=== PATIENT | male | born 1940 | race Caucasian/White ===

== ENCOUNTER → 2017-06-17 | Outpatient (CLI) | payer OTHER, MEDICARE | LOC: BMCIMAGING 11:27 | PROVIDERS: ATTEND Internal Medicine Cardiovascular Disease | DX: R42 Dizziness and giddiness (principal); Z95.0 Presence of cardiac pacemaker ==

== ENCOUNTER 2017-06-24 08:07 | Inpatient (IN) | payer OTHER, MEDICARE ==
--- NOTE | 2017-06-24 08:27 | CPEKG ---
Heart Rate: 71 RR Interval: 845 P-R Interval: 204 QRSD Interval: 78 QT Interval: 364 QTC Interval: 396 QRS Jesse: 87 T Wave Jesse: 99 EKG Severity - ABNORMAL ECG - EKG Impression: ATRIAL-PACED RHYTHM EKG Impression: BORDERLINE RIGHT AXIS DEVIATION EKG Impression: NONSPECIFIC T ABNORMALITIES, LATERAL LEADS Electronically Signed By: Khoa Lowery 24-Jun-2017 08:28:12
--- NOTE | 2017-06-24 08:28 | EDPHY ---
H & P Time Seen by Provider: 06/24/17 08:26 HPI/ROS: CHIEF COMPLAINT: Chest pain HISTORY OF PRESENT ILLNESS: On June 22 the patient had revision of pacemaker lead by Tom Kerr. He felt well yesterday and then this morning at 4:00 a.m. woke up with chest pain across the upper chest radiating up to his throat down to his abdomen and lasted about 30 minutes and he went back to bed. He woke up at 7:00 a.m. with recurrent symptoms. Upper chest, radiates both up and down, worse with deep breathing. Associated with a little bit of a raspy throat but no cough. REVIEW OF SYSTEMS: Eye: no change in vision ENT: no sore throat Cardiac: No syncope or fainting. Pulmonary: No cough. Mildly short of breath because to take a deep breath increases his pain. Abdomen: no vomiting, diarrhea, abdominal pain Musculoskeletal: No leg swelling or leg pain. Skin: Bruising around the pacemaker insertion site left subclavian but otherwise negative. Neuro: no headache Constitutional: no fever : no urinary symptoms A comprehensive 10 point review of systems is otherwise negative aside from elements mentioned in the history of present illness. PAST MEDICAL HISTORY: Pacemaker, gout, hypertension, cervical fusion, glaucoma. Social history: , former smoker, spouse is recently had a chest cold. No recent travel or immobilization. General Appearance: Alert and conversant, cooperative. Eyes: No scleral icterus. ENT, Mouth: Normal mucous membranes. Respiratory: Normal respiratory effort, breath sounds equal, lungs are clear to auscultation. Slightly splinting. Cardiovascular: Regular rate and rhythm. Gastrointestinal: Abdomen is soft and non tender. Neurological: Alert and oriented x3. Normally conversant. Face symmetric, normal movement and sensation in all extremities. Skin: Some bruising over the left subclavian pacemaker site but otherwise dressing peers intact. Musculoskeletal: No peripheral edema and no joint swelling. No calf tenderness. Psychiatric: Not agitated. Emergency Department course/MDM: Declined pain medication. Chest x-ray, EKG, troponin and D-dimer. 910: Results discussed, dental lab technician paged, D-dimer elevated, CTA discussed and consented. 942: Discussed with tom Peraza interrogate and get echo. 1024: Small effusion on echo 1033: Small hemopericardium on CT, no PE, [facility] 1101: Per Karmen, admit cardiology 1135: Systolic blood pressure 80, normal saline 500 ml IV normal mental status. 1205: Heart rate 30, blood pressure 70/50. 2nd L started and 1 L IV normal saline. Patient is diaphoretic but alert and normal mentation and 0.5 mg IV atropine. His dental lab technician is contacted. 1210: Blood pressure 83/64 and heart rate 100. 1214: Dr. Peraza his dental lab technician is at bedside. EKG appears to be pacing but not capturing. Plan to go directly to cardiac catheterization lab for pericardiocentesis and definitive treatment. Smoking Status: Former smoker Constitutional: Initial Vital Signs Temperature (C) 36.7 C 06/24/17 08:23 Heart Rate 67 06/24/17 08:23 Respiratory Rate 16 06/24/17 08:23 Blood Pressure 140/90 H 06/24/17 08:23 O2 Sat (%) 95 06/24/17 08:23 O2 Delivery Mode Room Air Allergies/Adverse Reactions: No Known Allergies Allergy (Unverified 06/11/15 07:06) Home Medications: Medication Instructions Recorded Allopurinol [Allopurinol 300 MG 300 mg PO DAILY 07/30/15 (RX)] Aspirin [Aspirin 81mg (*)] 81 mg PO DAILY 07/30/15 Bimatoprost 0.01% [Lumigan 0.01% 1 drops EACHEYE HS 07/30/15 (*)] Brimonidine/Timolol [Combigan (*)] 1 drop OP BID 07/30/15 Glucosamine Sulfate [Glucosamine 1,500 mg PO DAILY 06/22/17 Sulfate 500 MG (*)] Herbals/Supplements -Info Only 1 ea PO DAILY 06/22/17 Multivitamin with Minerals 1 each PO DAILY 06/22/17 [Multiple Vitamin] Medical Decision Making - Diagnostics EKG Interpretation: 12-lead EKG interpreted by me; official reading is in trace master. My interpretation is atrial paced rhythm at 71. Imaging Results: Imaging Impressions Chest X-Ray 06/24/17 08:27 Impression: Negative for pneumothorax following cardiac pacer manipulation. Chest/Thorax CTA 06/24/17 09:16 Impression: 1. Mild to moderate hemopericardium with one of the atrial leads appearing to overlie the pericardium, although assessment is limited by lack of cardiac gating. 2. Additional findings as above. Findings discussed with Khoa Lowery on June 24, 2017 at 10:33 a.m. Differential Diagnosis: Differential diagnosis considered for chest pain including but not limited to myocardial ischemia, aortic dissection, pericarditis, pulmonary embolus, chest wall pain, pleural inflammation and pulmonary infectious causes. Critical Care Time: Critical care time spent by me, Dr. Lowery, exclusively with the care of this patient was 45 minutes, exclusive of PA or CLOTH DYEING RANGE TENDER time and exclusive of separate procedures. The organ system at risk was cardiovascular and I ordered IV atropine, IV fluid resuscitation, emergent cardiology consultation to stabilize the patient and prevent worsening of the patient's condition. - Data Points Laboratory Results: Laboratory Results 06/24/17 08:06/24/17 08:06/24/17 06/24/17 06/24/17 08: 08: 08:33 WBC 9.82 10^3/uL H 10^3/uL (3.80-9.50) RBC 4.89 10^6/uL 10^6/uL (4.40-6.38) Hgb 15.5 g/dL g/dL (13.7-17.5) Hct 46.5 % % (40.0-51.0) MCV 95.1 fL fL (81.5-99.8) MCH 31.7 pg pg (27.9-34.1) MCHC 33.3 g/dL g/dL (32.4-36.7) RDW 13.4 % % (11.5-15.2) Plt Count 126 10^3/uL L 10^3/uL (150-400) MPV 12.0 fL H fL (8.7-11.7) Neut % (Auto) 81.5 % H % (39.3-74.2) Lymph % (Auto) 10.0 % L % (15.0-45.0) Wood % (Auto) 7.7 % % (4.5-13.0) Eos % (Auto) 0.2 % L % (0.6-7.6) Baso % (Auto) 0.3 % % (0.3-1.7) Nucleat RBC Rel Count 0.0 % % (0.0-0.2) Absolute Neuts (auto) 8.00 10^3/uL H 10^3/uL (1.70-6.50) Absolute Lymphs (auto) 0.98 10^3/uL L 10^3/uL (1.00-3.00) Absolute Monos (auto) 0.76 10^3/uL 10^3/uL (0.30-0.80) Absolute Eos (auto) 0.02 10^3/uL L 10^3/uL (0.03-0.40) Absolute Basos (auto) 0.03 10^3/uL 10^3/uL (0.02-0.10) Absolute Nucleated RBC 0.00 10^3/uL 10^3/uL (0-0.01) Immature Gran % 0.3 % % (0.0-1.1) Immature Gran # 0.03 10^3/uL 10^3/uL (0.00-0.10) D-Dimer 0.74 ug/mLFEU H ug/mLFEU (0.00-0.50) Sodium 139 mEq/L mEq/L (134-144) Potassium 4.5 mEq/L mEq/L (3.5-5.2) Chloride 102 mEq/L mEq/L (97-110) Carbon Dioxide 24 mEq/l mEq/l (22-31) Anion Gap 13 mEq/L mEq/L (8-16) BUN 19 mg/dL mg/dL (7-23) Creatinine 1.0 mg/dL mg/dL (0.7-1.3) Estimated GFR > 60 Glucose 179 mg/dL H mg/dL (70-100) Calcium 9.0 mg/dL mg/dL (8.5-10.4) Troponin I < 0.012 ng/mL ng/mL (0-0.034) Medications Given: Discontinued Medications Sodium Chloride (Ns) 500 mls @ 1,500 mls/hr IV ONCE ONE Stop: 06/24/17 11:57 Last Admin: 06/24/17 11:56 Dose: 500 mls Sodium Chloride (Ns) 1,000 mls @ 0 mls/hr IV ONCE ONE PRN Reason: Wide Open Stop: 06/24/17 11:56 Last Admin: 06/24/17 12:55 Dose: 1,000 mls Sodium Chloride (Ns) 1,000 mls @ 0 mls/hr IV ONCE ONE PRN Reason: Wide Open Stop: 06/24/17 12:48 Last Admin: 06/24/17 12:00 Dose: 1,000 mls Departure - Departure Disposition: To OP Cath/Surgery Clinical Impression: Pericardial effusion, PACEMAKER PROBLEM Chest pain Qualifiers: Chest pain type: unspecified Qualified Code(s): R07.9 - Chest pain, unspecified Condition: Serious
[2017-06-24 08:42] LABS: % IMMATURE GRANULYOCYTES 0.3 % (0.0-1.1); ABSOLUTE IMMATURE GRANULOCYTES 0.03 10^3/uL (0.00-0.10); ADD DIFF? NO; ADD MORPH? NO; ADD SCAN? NO; ATYPICAL LYMPHOCYTE FLAG 0 (0-99); FRAGMENT RBC FLAG 0 (0-99); HEMATOCRIT 46.5 % (40.0-51.0); HEMOGLOBIN 15.5 g/dL (13.7-17.5); LEFT SHIFT FLG 0 (0-99); LIPEMIA HEMOLYSIS FLAG 80 (0-99); MEAN CELL HEMOGLOBIN 31.7 pg (27.9-34.1); MEAN CELL HEMOGLOBIN CONCENTR. 33.3 g/dL (32.4-36.7); MEAN CELL VOLUME 95.1 fL (81.5-99.8); PLATELET CLUMPS FLAG 0 (0-99); PLATELET COUNT 126 10^3/uL (150-400); RED BLOOD CELL COUNT 4.89 10^6/uL (4.40-6.38); RED CELL DISTRIBUTION WIDTH 13.4 % (11.5-15.2)
[2017-06-24 08:54] LABS: ANION GAP 13 mEq/L (8-16); CARBON DIOXIDE 24 mEq/l (22-31); CHLORIDE 102 mEq/L (97-110); GLOMERULAR FILTRATION RATE > 60; GLUCOSE 179 mg/dL (70-100); POTASSIUM 4.5 mEq/L (3.5-5.2); SODIUM 139 mEq/L (134-144)
[2017-06-24 09:05] LABS: TROPONIN I < 0.012 ng/mL (0-0.034)
[2017-06-24] MEDS ORDERED: IOPAMIDOL (ISOVUE 370) 100 ML BTL IV ONE (09:48)
[2017-06-24] MEDS ORDERED: NS 500 ML IV ONE (11:38)
[2017-06-24] MEDS ORDERED: NS 1,000 ML IV ONE ×2 (11:55→12:47)
[2017-06-24] MEDS ORDERED: ATROPINE SULFATE 1 MG/10 ML SYR IVP ONE (12:00)
[2017-06-24] MEDS ORDERED: ATROPINE SULFATE 1 MG/10 ML SYR ONE ×2 (12:08→12:37)
--- NOTE | 2017-06-24 12:09 | CPEKG ---
Heart Rate: 74 RR Interval: 811 P-R Interval: 208 QRSD Interval: 78 QT Interval: 408 QTC Interval: 453 P [place]: 256 QRS [place]: 84 T Wave [place]: 84 EKG Severity - ABNORMAL ECG - EKG Impression: FAILURE TO SENSE AND/OR CAPTURE (?MAGNET) Electronically Signed By: Khoa Lowery 24-Jun-2017 13:28:55
[2017-06-24] MEDS ORDERED: fentaNYL 100 MCG/2 ML INJ ONE ×2 (12:23→13:25)
[2017-06-24] MEDS ORDERED: MIDAZOLAM 2 MG/2 ML VIAL ONE ×2 (12:23→13:25)
[2017-06-24] MEDS ORDERED: LIDOCAINE 1% 300 MG/30 ML SDV ONE ×2 (12:23→13:15)
[2017-06-24] MEDS ORDERED: DOPamine/DEXTROSE/250 ML BAG IV ONE (12:35)
[2017-06-24] MEDS ORDERED: EPINEPHrine 1 MG/10 ML SYR IVP ONE (12:37)
[2017-06-24] MEDS ORDERED: LIDO/EPI 1% **for epidural** 30 ML SDV ONE (13:14)
[2017-06-24] MEDS ORDERED: CEFAZOLIN 1 GM/DEXTROSE/50 ML BAG IV ONE (13:14)
[2017-06-24] MEDS ORDERED: BUPIVACAINE 0.5% 30 ML SDV ONE (13:15)
[2017-06-24] MEDS ORDERED: CITRATE DEXTROSE SOLN 500 ML BAG ONE (13:22)
[2017-06-24] MEDS ORDERED: BACITRACIN IRRIGATION/NS 50,000 UNITS/1,000 ML BTL IRR ONE (13:30)
--- NOTE | 2017-06-24 15:38 | CPEKG ---
Heart Rate: 60 RR Interval: 1000 P-R Interval: 228 QRSD Interval: 86 QT Interval: 416 QTC Interval: 416 QRS [place]: 72 T Wave [place]: 85 EKG Severity - ABNORMAL ECG - EKG Impression: ATRIAL-PACED RHYTHM EKG Impression: NONSPECIFIC T ABNORMALITIES, LATERAL LEADS Electronically Signed By: Arsenio Oconnor 25-Jun-2017 07:02:28
[2017-06-24] MEDS ORDERED: IBUPROFEN 200 MG TAB PO ONE (16:15)
--- NOTE | 2017-06-24 16:39 | GCON ---
[f rep st] CONSULTATION FIRE EXTINGUISHER REPAIRER INSPECTOR CONSULTATION REASON FOR ADMISSION: Pericardial tamponade. HISTORY OF PRESENTING ILLNESS: The patient is a 77-year-old white male with a past medical history of a pacemaker as well as gout. He was seen on 06/23/2017, for a new atrial lead. He returned, com plaining of chest pain and shortness of breath. He was found to have pericardial tamponade. He was taken to the cardiac catheterization lab, and a drain was placed. Approximately 250 cc was removed . He was subsequently admitted to the intensive care unit. In discussion today, he states that he feels somewhat better. He still has some mild chest pain but denies any shortness of breath. There is no cough or productive sputum. No fever or night sweats. PAST MEDICAL HISTORY: Significant for gout, and had a pacemaker placement. PAST SURGERIES: Neck surgery. ALLERGIES: None to medications. SOCIAL HISTORY: No history of tobacco use. Infrequent alcohol use. 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 He is . Has excellent family support. PHYSICAL EXAM: VITAL SIGNS: Blood pressure is 62/52, pulse is 72, respirations 18, temperature 37. 5, oxygen saturation 96% on 2 L. GENERAL: He is a mildly overweight, very pleasant, 77-year-old, w jona male who is resting comfortably, in no acute distress. HEENT: Eyes: [place], EOMI. Throat show s no erythema or tonsillar hypertrophy. NECK: Supple. No cervical adenopathy. HEART: Regular ra te and rhythm with a 2/6 systolic murmur at left sternal border without radiation. LUNGS: Diminish ed breath sounds but no wheeze. ABDOMEN: Soft, nontender. Bowel sounds are present. EXTREMITIES: No clubbing, cyanosis, or edema. LABORATORIES: White count is 9.8, hemoglobin 15, hematocrit 46, platelet count is 126. Sodium 139, potassium 4.5, chloride 102, CO2 24, BUN 19, creatinine 1, glucose is 179. IMPRESSION: 1. Status post pacemaker lead placement. 2. Iatrogenic microperforation with pericardial effusion and tamponade physiology. 3. History of gout. 4. Respiratory, currently stable on room air. 5. Chest pain. RECOMMENDATION: 1. Adequate pain control. 2. DVT and PE prophylaxis. 3. Stress ulcer prophylaxis. 4. Close cardiovascular monitoring. /[id number]/MODL
--- NOTE | 2017-06-24 17:09 | CPIP ---
[f rep st] INVASIVE CARDIAC PROCEDURE DATE OF PROCEDURE: 06/24/2017 PROCEDURE: Pericardiocentesis. INDICATION: Tamponade. Consent signed and in front of chart. SPECIFICS: 1. 1% lidocaine was used to anesthetize the subxiphoid region. 2. Percutaneous needle was advanced into the pericardial space under echocardiographic guidance and bloody fluid withdrawn. Agitated saline was used for contrast to verify entry into the pericardial space. A 0.035 wire was then advanced in the pericardial space followed by a dilator and a pericar dial drain, 200 mL of bloody fluid was withdrawn with return of normal hemodynamics. COMPLICATIONS: None. CONCLUSIONS: Status post successful pericardiocentesis. /[id number]/MODL
--- NOTE | 2017-06-24 17:31 | ECHO ---
[id number] + + [address] : : [place] [address] : : [phone] + + Adult Echocardiographic Report + ----+ :Name: LAURA MARTELL WStudy Date: 06/24/2017 12:35 PM : : Hospital Admission Number: [id number] Location : ER: :: 1940 Gender: Male : :Age: 77 yrs Race: WH : :History: Post Pacemaker, Chest Pain SOB, Pacemaker stop : :capturing. : + ----+ Pericardium/Pleural There is a moderate to severe pericardial effusion. The diastolic compression of the right atrium and right ventricle are suggestive of cardiac tamponade. Conclusion This is a stat limited to evaluate pericardial effusion. 1. There is a moderate to large pericardial effusion. 2. There is diastolic compression of the right atrium and right ventricle are suggestive of cardiac tamponade. Final Reading Physician: Laura Harris MD electronically signed on 06/24/2017 05:30 PM Ordering Physician: CASI SNIDER
--- NOTE | 2017-06-24 17:38 | ECHO ---
[id number] + + [address] : : [place] [address] : : [phone] + + Adult Echocardiographic Report + ------+ :Name: LAURA MARTELL WStudy Date: 06/24/2017 10:28 AM : : Hospital Admission Number: [id number] Location : 11: :: 1940 Gender: Male Height: 73 in : :Age: 77 yrs Race: WH Weight: 185 lb : :Reason For Study: Chest Pain : : BSA: 2.1 meters2 : :History: Pacer : + ------+ MMode/2D Measurements \T\ Calculations IVSd: 1.3 cm LVIDd: 4.2 cm FS: 36.3 % Ao root diam: 3.3 cm LVPWd: 0.93 cm LVIDs: 2.7 cm EDV(Teich): 79.0 ml ESV(Teich): 26.5 ml EF(Teich): 66.4 % Normal Measurement Values: + + :LVIDd (3.5-5.7cm) IVSd (0.6-1.1cm) LVPWd (0.6-1.1cm) Aortic Root (2.0-3.7cm)Left Atrium (1.5-4.0cm): :LV Vol(d) (76-115ml) LV Vol(s) (29-48ml) Ejec Fraction (50-65%)PV Kevon (0.6- 1.2m/s) TV Kevon (0.4-1.0m/s) : :MV E Kevon (0.8-1.0m/s)MV A Kevon (0.3-1.0m/s)LVOT Kevon (0.7-1.2m/s) Asc Ao Kevon ( 0.9-1.8m/s) : + + Doppler Measurements \T\ Calculations MV E max kevon: 43.9 cm/sec Ao V2 max: 103.8 cm/sec TR max kevon: 204.0 cm/sec MV A max kevon: 50.8 cm/sec Ao max P.3 mmHg TR max P.6 mmHg MV E/A: 0.86 RAP systole: 5.0 mmHg RVSP(TR): 21.6 mmHg Left Ventricle The left ventricle is normal in size. There is mild concentric left ventricular hypertrophy. Ejection Fraction = 60%. No regional wall motion abnormalities noted. Right Ventricle The right ventricle is normal in size and function. There is a pacemaker lead in the right ventricle. Atria The left atrial size is normal. Right atrial size is normal. Mitral Valve The mitral valve is normal in structure and function. There is no evidence of mitral valve prolapse. There is no mitral valve stenosis. Tricuspid Valve Normal tricuspid valve. There is trace tricuspid regurgitation. Right ventricular systolic pressure is normal. Aortic Valve The aortic valve is not well visualized. There is no aortic stenosis. There is no aortic insufficiency. Pulmonic Valve The pulmonic valve is not well visualized. There is no pulmonic valvular regurgitation. Great Vessels The aortic root is normal size. Pericardium/Pleural There is a small pericardial effusion with out tamponade physiology. Conclusion A complete two-dimensional transthoracic echocardiogram was performed (2D, M-mode, Doppler and color flow Doppler). Pacer being checked during echo (explanation for short bradycardia and tachycardia). 1. The left ventricle is normal in size. There is mild concentric left ventricular hypertrophy. The Ejection Fraction = 60%. 2. The mitral valve is normal in structure and function. 3. The aortic valve is not well visualized. There is no aortic stenosis. There is no aortic insufficiency. 4. Right ventricular systolic pressure is normal. 5. There is a small pericardial effusion with out tamponade physiology. Final Reading Physician: Laura Harris MD electronically signed on 06/24/2017 05:37 PM Ordering Physician: CASI SNIDER
--- NOTE | 2017-06-24 17:47 | ECHO ---
[id number] + + [address] : : [place] [address] : : [phone] + + Adult Echocardiographic Report + + :Name: LAURA MARTELL WStudy Date: 06/24/2017 12:46 PM : : Hospital Admission Number: [id number] Location : cardiac catheterization technician: :: 1940 Gender: Male : :Age: 77 yrs Race: WH : :Reason For Study: Eval Pericardial Effusion : :History: Pericardiocentisis : + + Pericardium/Pleural There is a moderate to large pericardial effusion, 340ml of pericardial fluid was removed during the procedure. Conclusion This is a limited echo to evaluate pericardial fluid during pericardiocentisis. 1. There is a moderate to large pericardial effusion with tamponade physiology. 2. IV contrast was given during study demonstrating no R to L shunt. (IV contrast was given when asked for pericaridal contrast) 3. Pericardial drain placed and 340ml of bloody pericardial fluid was removed. 4. Trace pericardial effusion was present after the pericaridal fluid was removed. 5. A trace to small pericardial effusion was present after lead revision. Final Reading Physician: Laura Harris MD electronically signed on 06/24/2017 05:46 PM Ordering Physician: Jovan Peraza Performed By: Mahamed Wylie, ROCIOCS
[2017-06-24] MEDS: BRIMONIDINE/TIMOLOL 5 ML OPHT.BTL OP SCH (19:35)
[2017-06-24] MEDS: BIMATOPROST 0.01% 2.5 ML OPHT.BTL EACHEYE SCH (19:36)
--- NOTE | 2017-06-24 19:38 | EPPROC ---
Electrophysiology Procedure Note: PROCEDURE PERFORMED: 1. Atrial lead revision INDICATION: Pericardial effusion post-atrial lead revision which led to tamponade. The pt had pericardiocentesis with confirmed bloody pericardial effusion and hence though the atrial lead did not appear to be dislodged, it was certain that the effusion was secondary to microperforation and hence it was decided to reposition to a different location after pericardial drain was placed. PROCEDURE NOTE: Patient presented to the cardiac catheterization laboratory in a fasting, postabsorptive state. Moderate sedation was administered and pericardial tap was performed. The __ infraclavicular area was prepped and draped in the usual sterile fashion. Lidocaine plus bupivacaine was used for local anesthesia. Using a combination of blunt and sharp dissection and electrocautery, the dissection was carried down to the prepectoral fascia and the existing pacemaker pocket was opened. The pacemaker generator was disconnected from the leads and the atrial lead was disconnected. Suture sleeve cur and stylet placed. lead was retracted and removed. After several attempts it was repositioned to a different location. BP remained stable. Echo showed no increased in pericardial effusion. Lead thresholds and impedance were checked and were excellent. Cough and deep breath did not dislodge the lead. The lead was sutured. The pacemaker pocket was copiously irrigated with antibiotic solution. The pocket was again inspected for any bleeding. The leads were attached to the pacemaker securely. The pacemaker was inserted into the pocket and secured in place with a nonabsorbable suture. The pacemaker pocket was closed in 3 layers with absorbable monocryl sutures. Appropriate dressing was applied. Echo checked, no reaccumulation of pericardial effusion. The patient left the cardiac catheterization laboratory in stable condition. Serial Numbers: 1. Device Biotronik Etrinsa SN [id number] SN [id number] 2. Atrial Lead Biotronik Solia S45 SN [id number] 3. Ventricular Lead Biotronik Setrox S60 SN [id number] Stimulation Thresholds & Impedance Measurements: 1. Atrial Lead 1.2mV, 0.8@0.4ms, 429Ohms 2. Ventricular Lead n/a, 0.8@0.4ms, 565Ohms Stefano Pacing Parameters 1. Pacing mode DDD CLS 2. Lower rate 60 3. Upper tracking rate 120 4. Upper sensor rate 120 Patient Problems: Problems Problem Status Onset Chest pain Acute Pericardial effusion Acute
[2017-06-25 03:56] LABS: % IMMATURE GRANULYOCYTES 0.4 % (0.0-1.1); ABSOLUTE IMMATURE GRANULOCYTES 0.04 10^3/uL (0.00-0.10); ADD DIFF? NO; ADD MORPH? NO; ADD SCAN? NO; ATYPICAL LYMPHOCYTE FLAG 0 (0-99); FRAGMENT RBC FLAG 0 (0-99); HEMATOCRIT 34.4 % (40.0-51.0); HEMOGLOBIN 11.5 g/dL (13.7-17.5); LEFT SHIFT FLG 10 (0-99); LIPEMIA HEMOLYSIS FLAG 80 (0-99); MEAN CELL HEMOGLOBIN 31.8 pg (27.9-34.1); MEAN CELL HEMOGLOBIN CONCENTR. 33.4 g/dL (32.4-36.7); MEAN PLATELET VOLUME 12.7 fL (8.7-11.7); PLATELET CLUMPS FLAG 0 (0-99); PLATELET COUNT 98 10^3/uL (150-400); RED BLOOD CELL COUNT 3.62 10^6/uL (4.40-6.38); RED CELL DISTRIBUTION WIDTH 13.6 % (11.5-15.2)
[2017-06-25 04:14] LABS: ANION GAP 9 mEq/L (8-16); CALCIUM 7.3 mg/dL (8.5-10.4); CARBON DIOXIDE 20 mEq/l (22-31); CHLORIDE 110 mEq/L (97-110); CREATININE 0.7 mg/dL (0.7-1.3); GLOMERULAR FILTRATION RATE > 60; GLUCOSE 105 mg/dL (70-100); POTASSIUM 3.5 mEq/L (3.5-5.2); SODIUM 139 mEq/L (134-144)
[2017-06-25] MEDS: BRIMONIDINE/TIMOLOL 5 ML OPHT.BTL OP SCH ×2 (08:00→18:57)
[2017-06-25] MEDS: ALLOPURINOL 300 MG TAB PO SCH (08:45)
[2017-06-25] MEDS: GLUCOSAMINE SULF 500 MG CAP PO SCH (08:45)
[2017-06-25] MEDS: MULTIVITAMINS W-MINERALS 1 EACH TAB PO SCH (08:45)
--- NOTE | 2017-06-25 08:58 | PDINTPN ---
Patient Registration Supervisor Progress Note Assessment/Plan: Assessment: * Pacemaker-status post lead change with iatrogenic micro perf * Pericardial effusion with tamponade-drain in place with minimal drainage last 6 hours * Respiratory-stable * Chest pain -resolved * History of gout Plan: Follow pericardial drainage closely Continue pain control Subjective: Looks and feels markedly improved. Chest pain is resolved. Denies any dyspnea. Objective: Vital Signs Temp Pulse Resp BP Pulse Ox 36.7 C 60 18 102/59 L 95 06/25/17 05:00 06/25/17 07:00 06/25/17 07:00 06/25/17 07:00 06/25/17 07:00 Laboratory Results 06/25/17 03:30 06/25/17 03:30 06/24/17 06/25/17 06/26/17 05:59 05:59 05:59 Intake Total 2833 Output Total 140 90 Balance 2693 -90 Chest [id number] by myself. Mild cardiomegaly otherwise clear Physical Exam - Physical Exam General Appearance: WD/WN, alert, no apparent distress EENT: PERRL/EOMI, normal ENT inspection, pharynx normal, TMs normal Neck: non-tender, full range of motion, supple, normal inspection Respiratory: chest non-tender, lungs clear, normal breath sounds Cardiac/Chest: normal peripheral pulses, regular rate, rhythm Peripheral Pulses: 2+: carotid (R), carotid (L), femoral (R), femoral (L), dorsalis-pedis (R), dorsalis-pedis (L) Abdomen: normal bowel sounds, non-tender, soft Male Genitalia: deferred Rectal: deferred Skin: normal color, warm/dry ICD10 Worksheet Patient Problems: Problems Problem Status Onset Chest pain Acute Pericardial effusion Acute
[2017-06-25] MEDS ORDERED: NON-FORMULARY NEW DRUG (Multivitamin With Minerals [Multiple Vitamin] 1 EACH) PO SCH (09:00)
[2017-06-25] MEDS ORDERED: Herbals/Supplements -Info Only PO SCH (09:00)
[2017-06-25] MEDS ORDERED: ASPIRIN 81 MG CHEWABLE TAB PO SCH (09:00)
--- NOTE | 2017-06-25 13:19 | PDCARPN ---
Cardiology Progress Note Chief Complaint: Cardiac tamponade status post atrial lead placement. Assessment/Plan: Assessment: 1. Atrial lead revision by Dr. Peraza on Tue. Presented with cardiac tamponade, 700mL of bloody fluid removed since presentation. Dr. Peraza repositioned lead. Plan: 1. Lead thresholds this morning are normal. There is no reaccumulation of pericardial effusion. However 90 mL of serosanguineous fluid was removed this morning from the drain. Will continue draining pericardial drain q.8 hours. If tomorrow, drainage is less than 50 cc per shift and fluid is clear, pericardial drain can be removed. Discussed this with patient's RN. Will repeat echocardiogram tomorrow morning. 2. Will start on potassium protocol for K 3.5. 3. Discussed at length the events of the last 4 days with the patient. He understands. 06/25/17 13:17 Subjective: Feels well today. Denies any chest pain. Reviewed/Discussed With: multidisciplinary team Time Spent With Patient: 25 minutes Objective: Vital Signs (8 Hrs) Pulse Resp BP Pulse Ox 06/25/17 12:00 60 22 H 108/57 L 94 06/25/17 11:00 60 18 106/63 96 06/25/17 10:00 60 17 103/59 L 96 06/25/17 08:00 60 20 96 06/25/17 07:00 60 18 102/59 L 95 06/25/17 06:00 60 16 102/59 L 94 Intake/Output (24 Hrs) 06/24/17 06/25/17 06/26/17 11:59 11:59 11:59 Intake Total 2833 Output Total 230 Balance 2603 Intake: Oral (ml) 780 IV Intake (ml) 53 IV Infused (ml) 2000 Output: Pericardial Drain Output 230 (ml) Anterior Chest 230 Pericardial Other: Weight 83.915 kg Intake Quantity Yes Sufficient Number of Voids Toilet 1 Result Diagrams: 06/25/17 03:30 06/25/17 03:30 Telemetry: Atrial paced rhythm Echocardiogram: This morning's echocardiogram shows thickening of the pericardium, possible small layered hematoma, no free-flowing pericardial effusion. - Physical Exam Constitutional: healthy appearing, no apparent distress Eyes: PERRL, EOMI Ears, Nose, Mouth, Throat: moist mucous membranes Cardiovascular: regular rate and rhythm Respiratory: clear to auscultate bilat ICD10 Worksheet Patient Problems: Problems Problem Status Onset Chest pain Acute Pericardial effusion Acute
--- NOTE | 2017-06-25 13:27 | PDCARPN ---
Cardiology Progress Note Assessment/Plan: Assessment: Admit to inpt status due to tamponade with ongoing drainage from pericardial drain requiring ICU status. Plan: 06/25/17 13:26 Objective: Vital Signs (8 Hrs) Pulse Resp BP Pulse Ox 06/25/17 12:00 60 22 H 108/57 L 94 06/25/17 11:00 60 18 106/63 96 06/25/17 10:00 60 17 103/59 L 96 06/25/17 08:00 60 20 96 06/25/17 07:00 60 18 102/59 L 95 06/25/17 06:00 60 16 102/59 L 94 Intake/Output (24 Hrs) 06/24/17 06/25/17 06/26/17 05:59 05:59 05:59 Intake Total 2833 Output Total 140 90 Balance 2693 -90 Intake: Oral (ml) 780 IV Intake (ml) 53 IV Infused (ml) 2000 Output: Pericardial Drain Output 140 90 (ml) Anterior Chest 140 90 Pericardial Other: Weight 83.915 kg Intake Quantity Yes Sufficient Number of Voids Toilet 1 Result Diagrams: 06/25/17 03:30 06/25/17 03:30 ICD10 Worksheet Patient Problems: Problems Problem Status Onset Chest pain Acute Pericardial effusion Acute
[2017-06-25] MEDS ORDERED: PROTOCOL POTASSIUM 1 DOSE MISC PRN (13:28)
[2017-06-25] MEDS ORDERED: POTASSIUM CL 10 MEQ TAB PO ONE (13:49)
--- NOTE | 2017-06-25 13:55 | ECHO ---
[id number] + + [address] : : [place] [address] : : [phone] + + Adult Echocardiographic Report + + :Name: LAURA MARTELL Study Date: 06/25/2017 07:06 AM : : Hospital Admission Number: [id number] : :: 1940 Gender: Male : :Age: 77 yrs Race: WH : :Reason For Study: Eval for pericardial effusion : + + Pericardium/Pleural Trace residual fluid with echogenicity within. Conclusion Limited 2-D echo. Trace residual pericardial fluid with likely layered thrombus in pericardium. Final Reading Physician: Arsenio Oconnor MD electronically signed on 06/25/2017 01:53 PM Ordering Physician: Emily Laguna Performed By: Autumn Cardenas RDCS
[2017-06-25] MEDS: BIMATOPROST 0.01% 2.5 ML OPHT.BTL EACHEYE SCH (21:06)
[2017-06-26 04:55] LABS: POTASSIUM 4.2 mEq/L (3.5-5.2)
[2017-06-26] MEDS: BRIMONIDINE/TIMOLOL 5 ML OPHT.BTL OP SCH ×2 (08:08→19:08)
[2017-06-26] MEDS: MULTIVITAMINS W-MINERALS 1 EACH TAB PO SCH (08:13)
[2017-06-26] MEDS: ALLOPURINOL 300 MG TAB PO SCH (08:13)
[2017-06-26] MEDS: GLUCOSAMINE SULF 500 MG CAP PO SCH (08:13)
--- NOTE | 2017-06-26 09:20 | PDINTPN ---
[facility] Progress Note Assessment/Plan: Assessment: * Pacemaker-status post lead change with iatrogenic micro perf * Pericardial effusion with tamponade-drain in place with minimal drainage last 24 hours. Echo from yesterday showed minimal pericardial fluid * Respiratory-stable * Chest pain -resolved * History of gout Plan: Follow pericardial drainage closely. Anticipate discontinuation of drains soon Continue pain control Subjective: Sitting up. Comfortable. Chest pain resolved. Denies dyspnea Objective: Vital Signs Temp Pulse Resp BP Pulse Ox 36.6 C 60 24 H 124/62 H 96 06/26/17 04:00 06/26/17 08:00 06/26/17 08:00 06/26/17 08:00 06/26/17 08:00 Laboratory Results 06/26/17 04:25 06/25/17 06/26/17 06/27/17 05:59 05:59 05:59 Intake Total 700 Output Total 530 Balance 170 Physical Exam - Physical Exam General Appearance: WD/WN, alert, no apparent distress EENT: PERRL/EOMI, normal ENT inspection, pharynx normal, TMs normal Neck: non-tender, full range of motion, supple, normal inspection Respiratory: chest non-tender, lungs clear, normal breath sounds Cardiac/Chest: normal peripheral pulses, regular rate, rhythm Abdomen: normal bowel sounds, non-tender, soft Male Genitalia: deferred Rectal: deferred Extremities: normal range of motion, non-tender, normal inspection, normal capillary refill Neuro/Psych: no motor/sensory deficits, alert, normal mood/affect, oriented x 3 ICD10 Worksheet Patient Problems: Problems Problem Status Onset Chest pain Acute Pericardial effusion Acute
--- NOTE | 2017-06-26 09:28 | PDCARPN ---
Cardiology Progress Note Chief Complaint: No complaints this morning. Sleep overnight was fair. Assessment/Plan: Assessment: Patient is a 77 y/o male POD#4 for lead revision and POD#2 for pericardial drain given large pericardial effusion/tamponade noted after lead revision. About 700 cc of bloody fluid were removed with the pericardiocentesis. The last two days, the limited echocardiograms have not revealed change. About 90 cc of fluid were noted between Tuesday and Tue, and overnight there was another 70 cc of fluid (serosang) noted. Echocardiograms from the last three days were reviewed by myself (visually). No cardiovascular complaints of chest pains or pressure. No PND or orthopnea. Overall, patient appears to be doing well, and reports that he feels much better than prior to the pericardiocentesis. Plan: Echocardiography without changes over the past two days, but I have some reservation about removal of the pericardial drain given the volume of fluid that continues to be noted. Would monitor output today, and consider removal this evening. Subjective: No cardiovascular complaints Reviewed/Discussed With: multidisciplinary team Objective: Vital Signs (8 Hrs) Temp Pulse Resp BP Pulse Ox 06/26/17 08:00 60 24 H 124/62 H 96 06/26/17 06:00 60 17 128/61 H 95 06/26/17 05:00 91 16 126/62 H 95 06/26/17 04:00 36.6 C 60 18 118/73 95 06/26/17 03:00 60 18 135/59 H 93 06/26/17 02:00 60 17 114/75 94 Intake/Output (24 Hrs) 06/25/17 06/26/17 06/27/17 05:59 05:59 05:59 Intake Total 700 Output Total 530 Balance 170 Intake: Oral (ml) 700 IV Intake (ml) 0 Output: Urine (ml) 400 Toilet 400 Pericardial Drain Output 130 (ml) Anterior Chest 130 Pericardial Other: Intake Quantity Yes Sufficient Number of Voids Toilet 1 Number of Stools Toilet 0 Result Diagrams: 06/25/17 03:30 06/26/17 04:25 Telemetry: sinus rhythm Echocardiogram: normal appearing pericardial fluid. grossly normal left ventricular systolic function. no evidence of tamponade - Physical Exam Constitutional: WDWN, healthy appearing, no apparent distress Eyes: PERRL, EOMI Ears, Nose, Mouth, Throat: moist mucous membranes Cardiovascular: regular rate and rhythm, no murmurs, no rubs, no gallops Peripheral Pulses: 2+: dorsalis-pedis (R), dorsalis-pedis (L) Respiratory: clear to auscultate bilat, no crackles, no wheezes Gastrointestinal: normoactive bowel sounds Skin: no rashes, no edema Musculoskeletal: no muscular tenderness Neurologic: AAOx3, CN II-XII grossly intact Psychiatric: cooperative, interactive, following commands ICD10 Worksheet Patient Problems: Problems Problem Status Onset Chest pain Acute Pericardial effusion Acute
[2017-06-26] MEDS: BIMATOPROST 0.01% 2.5 ML OPHT.BTL EACHEYE SCH (19:08)
--- NOTE | 2017-06-27 08:34 | ECHO ---
[id number] + + [address] : : [place] [address] : : [phone] + + Adult Echocardiographic Report + + :Name: LAURA MARTELL Study Date: 06/26/2017 07:33 AM : : Hospital Admission Number: [id number] : :: 1940 Gender: Male : :Age: 77 yrs Race: WH : :Reason For Study: Eval pericardial fluid : + + Pericardium/Pleural Trace residual pericardial effusion with likely layered thrombus in pericardium. Conclusion Limited 2-D echo. Unchanged from yesterday's exam. Trace residual pericardial effusion Final Reading Physician: Calos P Grossman, Melectronically signed on 06/27/2017 08:32 AM Ordering Physician: Arsenio Oconnor Performed By: Autumn Cardenas RDCS
[2017-06-27] MEDS: GLUCOSAMINE SULF 500 MG CAP PO SCH (08:43)
[2017-06-27] MEDS: BRIMONIDINE/TIMOLOL 5 ML OPHT.BTL OP SCH ×2 (08:43→19:34)
[2017-06-27] MEDS: ALLOPURINOL 300 MG TAB PO SCH (08:43)
[2017-06-27] MEDS: MULTIVITAMINS W-MINERALS 1 EACH TAB PO SCH (08:43)
--- NOTE | 2017-06-27 13:10 | ECHO ---
[id number] + + [address] : : [place] [address] : : [phone] + + Adult Echocardiographic Report + -----+ :Name: LAURA MARTELL WStudy Date: 06/27/2017 11:15 AM : : Hospital Admission Number: [id number] Location : 251: :: 1940 Gender: Male : :Age: 77 yrs Race: WH : :Reason For Study: Eval for pericardial fluid post drain : :removal : + -----+ Pericardium/Pleural Trace residual pericardial effusion with likely layered thrombus in pericardium. Conclusion Limited 2-D echo. Trace residual pericardial effusion with likely layered thrombus in pericardium. Final Reading Physician: Stella Sullivan signed on 06/27/2017 01:08 PM Ordering Physician: Jovan Peraza Performed By: Autumn Cardenas, ROCIOCS
[2017-06-27] MEDS: ASPIRIN EC 81 MG TAB PO SCH (15:44)
--- NOTE | 2017-06-27 16:17 | PDCARPN ---
Cardiology Progress Note Chief Complaint: No complaints today. Limited echo without clear changes in comparison to yesterday's echo Assessment/Plan: Assessment: 06-27-17 Patient doing well today. No events overnight. No new pains or discomfort noted. Limited echo without new accumulation of pericardial fluid. Discussion between cardiology (EP in particular) about the reintroduction of ASA therapy and concerns about revisitation of pericardial effusion. 06-26-17 Patient is a 77 y/o male POD#4 for lead revision and POD#2 for pericardial drain given large pericardial effusion/tamponade noted after lead revision. About 700 cc of bloody fluid were removed with the pericardiocentesis. The last two days, the limited echocardiograms have not revealed change. About 90 cc of fluid were noted between Tuesday and Tue, and overnight there was another 70 cc of fluid (serosang) noted. Echocardiograms from the last three days were reviewed by myself (visually). No cardiovascular complaints of chest pains or pressure. No PND or orthopnea. Overall, patient appears to be doing well, and reports that he feels much better than prior to the pericardiocentesis. Plan: (1) Resumption of ASA therapy (81 mg) and have patient seen first thing in the morning - I would be tempted to have another limited echo to reassess pericardial fluid Subjective: No complaints Reviewed/Discussed With: family, hospitalist, multidisciplinary team Objective: Vital Signs (8 Hrs) Temp Pulse Resp BP Pulse Ox 06/27/17 15:46 36.4 C 60 22 H 145/89 H 98 06/27/17 11:52 36.6 C 60 20 109/83 H 96 Intake/Output (24 Hrs) 06/26/17 06/27/17 06/28/17 05:59 05:59 05:59 Intake Total 700 500 Output Total 530 835 Balance 170 -335 Intake: Oral (ml) 700 500 IV Intake (ml) 0 Output: Urine (ml) 400 800 Toilet 400 800 Pericardial Drain Output 130 35 (ml) Anterior Chest 130 35 Pericardial Other: Intake Quantity Yes Sufficient Number of Voids Toilet 1 1 Number of Stools Toilet 0 Result Diagrams: 06/25/17 03:30 06/26/17 04:25 Telemetry: Atrial pacing - Physical Exam Constitutional: WDWN, healthy appearing, no apparent distress Eyes: PERRL Ears, Nose, Mouth, Throat: moist mucous membranes Cardiovascular: regular rate and rhythm, no murmurs, no rubs, no gallops Peripheral Pulses: 2+: dorsalis-pedis (R), dorsalis-pedis (L) Respiratory: clear to auscultate bilat, no crackles, no wheezes Gastrointestinal: normoactive bowel sounds Skin: no rashes, no edema Musculoskeletal: no muscular tenderness Neurologic: AAOx3, CN II-XII grossly intact Psychiatric: cooperative, interactive, following commands ICD10 Worksheet Patient Problems: Problems Problem Status Onset Chest pain Acute Pericardial effusion Acute
[2017-06-27] MEDS ORDERED: BIMATOPROST 0.01% EACHEYE SCH (22:15)
[2017-06-27] MEDS: BIMATOPROST 0.01% 2.5 ML OPHT.BTL EACHEYE SCH (23:03)
[2017-06-28 04:27] VITALS: BP 138/66; O2SAT 95
[2017-06-28 05:24] LABS: POTASSIUM 4.2 mEq/L (3.5-5.2)
[2017-06-28 08:04] VITALS: PULSE 59; RESP 21; TEMP 98.6
[2017-06-28] MEDS: ASPIRIN EC 81 MG TAB PO SCH (08:06)
[2017-06-28] MEDS: GLUCOSAMINE SULF 500 MG CAP PO SCH (08:06)
[2017-06-28] MEDS: ALLOPURINOL 300 MG TAB PO SCH (08:07)
[2017-06-28] MEDS: BRIMONIDINE/TIMOLOL 5 ML OPHT.BTL OP SCH (08:07)
[2017-06-28] MEDS: MULTIVITAMINS W-MINERALS 1 EACH TAB PO SCH (08:07)
--- NOTE | 2017-06-28 08:39 | PDDCSUM ---
Discharge Summary Discharge Summary: Patient is a 77 y/o male with history of SSS s/p recent atrial lead revision due to malfunction. Post operatively, the patient was noted to have a moderate size pericardial effusion. Pericardiocentesis was performed (Dr. Magalie Harris) with 200 cc fluid removed, and a lead revision with atrial lead was also performed. The patient was monitored in the ICU for several days (with pericardial drain in place and without). After drain was removed, the patient was assessed for 36 hours further (with the addition of ASA therapy), and no revisitation of excess pericardial fluid was noted. Minor, expected, pacer site discomfort was noted, and each day, improvements were noted. was at bedside today and yesterday. Limited echo at bedside this morning without changes to the pericardial fluid volume noted. Plan to discharge the patient to home. Follow up with [facility] is scheduled for tomorrow. Medications (1) ASA (81 mg per day) Would maintain scheduled follow up appointments as well as pacer interrogations. Patient and were in agreement with these plans.
== END 2017-06-28 09:19 | disposition home or self-care (01) | DRG 908 ==
LOC: INTOOBSV 11:19 → F2N 14:09 → OBSVTOIN 06-25 13:32 → F2N 06-27 19:48
PROVIDERS: ADMIT Internal Medicine Cardiovascular Disease; ATTEND Internal Medicine Cardiovascular Disease
PROC: 02WA3MZ Revision of Cardiac Lead in Heart, Percutaneous Approach (ICD-10-PCS; principal; 2017-06-24)
PROC: 0W9D30Z Drainage of Pericardial Cavity with Drainage Device, Percutaneous Approach (ICD-10-PCS; 2017-06-24)
DX: I97.51 Accidental puncture and laceration of a circulatory system organ or structure during a circulatory system procedure (principal); I31.4 Cardiac tamponade; I10 Essential (primary) hypertension; Z98.1 Arthrodesis status; Z87.891 Personal history of nicotine dependence; Z95.0 Presence of cardiac pacemaker
CPT/HCPCS: G0378; J0461; J0690; J1265; J2250; J3010; J7060; Q9967

== ENCOUNTER → 2018-09-22 | Outpatient (CLI) | payer OTHER, MEDICARE | LOC: BHFA 10:45 | PROVIDERS: ATTEND Internal Medicine Cardiovascular Disease | DX: I48.91 Unspecified atrial fibrillation (principal) ==

== ENCOUNTER → 2019-04-19 | Outpatient (CLI) | payer OTHER, MEDICARE | LOC: BMCIMAGING 11:53 ==